=== PATIENT | female | born 1965 | race Caucasian/White ===

== ENCOUNTER 2017-03-09 16:39 | Emergency (ER) | payer MEDICARE, MEDICAID ==
[~2017-03-09] VITALS: Ht 167.6 cm; Wt 140.6 kg
[~2017-03-09 16:39] MED LIST: ALBU0.632 IH; ALBU17AE23 IH; ALPR1T PO; AMIT100T2 PO; AMOX500C2 PO; AMT10T PO; ARPZ10T PO; ASP81CT PO; ATEN50TA PO; ATN50T PO; BENZ100C18 PO; BENZ200C25 PO; BUDE0.5A2 IH; CEFD300C3 PO; CLON1TAB36; CODE118S2 PO; CPR500T PO; CRESTOR40 MG PO; CYMBALTA; DCS100C PO; DIAZ5TAB3 PO; DIAZ5TAB49; DIAZ5TAB49 PO; DICL100G31 TP; DLT180CCR; DOXY100C2 PO; DOXY100T2 PO; DULO60CA6 PO; ESCI10TA48 PO; ESTR1TAB24 PO; ESZO1TAB2 PO; FERR27TA PO; FLUT1DIS26 INH; FRS325T PO; GBPN100C PO; GBPN300C PO; GFCD10B PO; HYDR-34; HYDR-91 PO; IBP800T PO; IPRA3AMP19 IH; LAMO100T69 PO; LEVO250T7 PO; LEVO500T69 PO; LISI-556 PO; LISI5TAB PO; LUNESTA; LVT.1T PO; METH10TA8 PO; METH20TA34 PO; METH4TAB PO; MNTL10T PO; MULT-305 PO; NF-PILO5T PO; NIZA150C7 PO; NIZATIDINE; OMEP20CA12 PO; ONDA8TAB9 PO; OXYB15TA PO; OXYC10TA7 PO; OXYC20TA63 PO; OXYC30TA76 PO; PENI500T PO; PRCD5U PO; PRD50T PO; PRILO; PROM25SU10 PR; QTP100T; QTP25T; QUET300T PO; QUET400T PO; RAME8T PO; RANI300T4 PO; ROPI2TAB3 PO; ROPI2TAB4 PO; RPN.25T PO; RT-ALBUINH IH; SEROQUIL; SYNT; SYNTHROID; TOPI50TA20 PO; TPR25T PO; TRAM50TA2 PO; TRAZ150T42 PO; TRH2T PO; TRZ100T; TRZ100T PO; TRZ50T; VITA1CAP42 PO; VITA1TAB17 PO; VITAMIN D PO; [UNRECOGNIZED DRUG - OTHER]
--- NOTE | 2017-03-09 17:22 | ED General ---
General Stated Complaint: WEAKNESS,DIZINESS Source of Information: Patient Exam Limitations: No Limitations History of Present Illness Time Seen by Provider: 17:20 Initial Comments To ER with fatigue and general weakness since yesterday. She states that she has narcolepsy which is usually only a minor problem but seems to be worse since yesterday. She lists her medications which include amitriptyline, Requip , Seroquel, alprazolam, gabapentin, oxycodone. I advised all of these contribute to her narcolepsy. She does report a slight cough which is unusual for her though she does have a history of COPD and asthma. The cough is nonproductive. No fevers. Timing/Duration: 1-2 Days Severity: Moderate Allergies and Home Medications Allergies Coded Allergies: No Known Drug Allergies (Verified , 06/05/07) Uncoded Allergies: BEE STINGS (Allergy, Severe, 05/03/09) SMOKE (Allergy, Mild, 05/03/09) Home Medications Albuterol Sulfate 8.5 Gm Hfa.aer.ad, 2 PUFF IH Q6H PRN for SHORTNESS OF BREATH, (Reported) Amitriptyline HCl 100 Mg Tablet, 100 MG PO HS, (Reported) LAST FILLED 02/20/16 #30 Aspirin 81 Mg Tablet, 81 MG PO DAILY, (Reported) Atenolol 50 Mg Tablet, 50 MG PO DAILY, (Reported) Benzonatate 100 Mg Capsule, 100 MG PO TID PRN for COUGH, #15 Prescribed by: SHALOM LONDON on 03/09/171740 Cefuroxime Axetil 250 Mg Tablet, 250 MG PO BID, #14 Prescribed by: SHALOM LONDON on 03/09/171740 Diazepam 5 Mg Tablet, 5 MG PO Q8H, (Reported) Diclofenac Sodium 100 Gm Gel..gram., TP BID, (Reported) Ferrous Sulfate 27 Mg Tablet, 325 MG PO DAILY, (Reported) Lisinopril 5 Mg Tablet, 2.5 MG PO BID, (Reported) TAKES 1/2 OF A (5 MG) TABLET / LAST FILLED 02/24/16 #30 Methylphenidate HCl 20 Mg Tablet, 20 MG PO BID, (Reported) Multivits W-Ca,Fe,Other Min 1 Each Tablet, 1 TAB PO DAILY, (Reported) Oxycodone HCl 10 Mg Tablet, 20 MG PO Q12H PRN for PAIN, (Reported) TAKES 2 (10 MG) TABLETS Prednisone 20 Mg Tab, 40 MG PO DAILY, #6 Prescribed by: SHALOM LONDON on 03/09/17 174 Ropinirole HCl 2 Mg Tablet, 2 MG PO HS, (Reported) Tramadol HCl 50 Mg Tablet, 50 MG PO EVERY 6-8 HOURS PRN for BREAKTHROUGH PAIN, ( Reported) Vitamin B Complex 1 Each Tablet, 1 TAB PO DAILY, (Reported) [[Vitamin D]] , 1 TAB PO DAILY, (Reported) Constitutional: see HPI, No chills, No fever Respiratory: see HPI, cough, dyspnea on exertion Cardiovascular: no symptoms reported, No chest pain, No edema, No Hx of Intervention, No palpitations, No syncope, No vascular heart diseas Genitourinary: no symptoms reported Musculoskeletal: no symptoms reported Skin: no symptoms reported Psychiatric/Neurological: No Symptoms Reported Hematologic/Lymphatic: No Symptoms Reported Past Jeiipub-Ogykgm-Hqhpjv Hx Patient Social History Recent Foreign Travel: No Contact w/Someone Who Travel: No Recent Hopitalizations: No Immunizations Up To Date Date of Pneumonia Vaccine: May 16, 2011 Date of Influenza Vaccine: Jan 27, 2013 Seasonal Allergies Seasonal Allergies: No Respiratory Respiratory Disorders: Asthma, Pneumonia, Chronic Bronchitis, Sleep Apnea Currently Using CPAP: No Currently Using BIPAP: No Neurological Neurological Disorders: Concussion, Traumatic Brain Injury Reproductive System Hx Reproductive Disorders: Yes Sexually Transmitted Disease: No HIV/AIDS: No Female Reproductive Disorders: Denies Musculoskeletal Musculoskeletal Disorders: Arthritis Endocrine Endocrine Disorders: Hypothyroidsim, Diabetes, Non-Insulin dep HEENT Loss of Vision: Denies Hearing Impairment: Denies Psychosocial Behavioral Health Disorders: Anxiety, Bipolar, Depression Blood Transfusions Adverse Reaction to a Blood Tr: No Physical Exam Vital Signs Vital Sign - Last 12Hours 03/09/17 16:39 Temp 98.9 Pulse 117 Resp 20 B/P (MAP) 144/84 Pulse Ox 88 O2 Delivery Room Air Capillary Refill : General Appearance: No Apparent Distress, WD/WN Eyes: Bilateral Eye Normal Inspection, Bilateral Eye PERRL, Bilateral Eye EOMI HEENT: PERRL/EOMI, TMs Normal Neck: Full Range of Motion, Normal Inspection Respiratory: No Accessory Muscle Use, No Respiratory Distress Cardiovascular: Regular Rate, Rhythm, Normal Peripheral Pulses Gastrointestinal: Normal Bowel Sounds, Non Tender, Soft Extremity: Normal Capillary Refill, Non Tender, No Calf Tenderness Neurologic/Psychiatric: Alert, Oriented x3, No Motor/Sensory Deficits, Other ( speech is slow. Pupils are pinpoint. She is ambulatory and is able to carry on a coherent conversation however.) Skin: Normal Color, Warm/Dry Progress/Results/Core Measures Results/Orders Lab Results Laboratory Tests Test 03/09/17 16:55 03/09/17 17:00 Range/Units White Blood Count 10.7 4.3-11.0 10^3/uL Red Blood Count 4.01 L 4.35-5.85 10^6/uL Hemoglobin 11.9 11.5-16.0 G/DL Hematocrit 38 35-52 % Mean Corpuscular Volume 94 80-99 FL Mean Corpuscular Hemoglobin 30 25-34 PG Mean Corpuscular Hemoglobin Concent 32 32-36 G/DL Red Cell Distribution Width 14.1 10.0-14.5 % Platelet Count 237 130-400 10^3/uL Mean Platelet Volume 12.0 H 7.4-10.4 FL Neutrophils (%) (Auto) 53 42-75 % Lymphocytes (%) (Auto) 38 12-44 % Monocytes (%) (Auto) 6 0-12 % Eosinophils (%) (Auto) 4 0-10 % Basophils (%) (Auto) 0 0-10 % Neutrophils # (Auto) 5.6 1.8-7.8 X 10^3 Lymphocytes # (Auto) 4.0 1.0-4.0 X 10^3 Monocytes # (Auto) 0.6 0.0-1.0 X 10^3 Eosinophils # (Auto) 0.4 H 0.0-0.3 10^3/uL Basophils # (Auto) 0.0 0.0-0.1 10^3/uL Sodium Level 136 135-145 MMOL/L Potassium Level 3.7 3.6-5.0 MMOL/L Chloride Level 100 98-107 MMOL/L Carbon Dioxide Level 22 21-32 MMOL/L Anion Gap 14 5-14 MMOL/L Blood Urea Nitrogen 11 7-18 MG/DL Creatinine 1.06 0.60-1.30 MG/DL Estimat Glomerular Filtration Rate 55 BUN/Creatinine Ratio 10 Glucose Level 112 H 70-105 MG/DL Calcium Level 9.2 8.5-10.1 MG/DL Total Bilirubin 0.3 0.1-1.0 MG/DL Aspartate Amino Transf (AST/SGOT) 44 H 5-34 U/L Alanine Aminotransferase (ALT/SGPT) 33 0-55 U/L Alkaline Phosphatase 120 40-136 U/L Total Protein 7.6 6.4-8.2 GM/DL Albumin 3.8 3.2-4.5 GM/DL My Orders Orders - SHALOM LONDON APRN Cbc With Automated Diff (03/09/17 17:18) Comprehensive Metabolic Panel (03/09/17 17:18) Ua Culture If Indicated (03/09/17 17:18) Drug Screen Stat (Urine) (03/09/17 17:18) Arterial Blood Gas (03/09/17 17:18) Saline Lock/Iv-Start (03/09/17 17:18) Chest Pa/Lat (2 View) (03/09/17 17:18) Ekg Tracing (03/09/17 17:18) BNP (03/09/17 17:18) Troponin I (03/09/17 17:18) Vital Signs/I&O Vital Sign - Last 12Hours 03/09/17 16:39 Temp 98.9 Pulse 117 Resp 20 B/P (MAP) 144/84 Pulse Ox 88 O2 Delivery Room Air Diagnostic Imaging Diagonstic Imaging: Xray Plain Films/CT/US/NM/MRI: chest Comments NAME: [facility]ESS[facility]IM [facility] REC#: [id number] PT STATUS: REG ER : 1965 PHYSICIAN: SHALOM LONDON APRN ADMIT DATE: 03/09/17/ER Draft Date of Exam:03/09/17 CHEST PA/LAT (2 VIEW) INDICATION: Cough, shortness of air. EXAMINATION: Chest, two views, 03/09/2017. COMPARISONS: 12/31/2012. FINDINGS: The heart is normal in appearance. Pulmonary vasculature, however, appears congested, and there are mildly increased interstitial markings throughout the lungs. No effusions. No pneumothorax. IMPRESSION: 1. Mild pulmonary vascular congestion with early edema not excluded. Dictated on workstation # [id number] Dict: 03/09/17 1742 Trans: 03/09/17 1754 [id number] Interpreted by: JERMAIN SMITH MD Electronically signed by: Departure Impression Impression: Primary Impression: Sedated due to multiple medications Additional Impression: Acute bronchitis Disposition: 01 HOME, SELF-CARE Condition: Stable Departure-Patient Inst. Decision time for Depature: 17:40 Referrals: HIGINIO FIELDS MD (PCP/Family) Primary Care Physician Patient Instructions: Acute Bronchitis in Adults Add. Discharge Instructions: 1. Antibiotics as directed 2. REturn tO ER for any concerns Scripts Prednisone (Prednisone) 20 Mg Tab 40 MG PO DAILY, #6 TAB Prov: SHALOM LONDON APRN 03/09/17 Cefuroxime Axetil (Cefuroxime) 250 Mg Tablet 250 MG PO BID, #14 TAB Prov: SHALOM LONDON APRN 03/09/17 Benzonatate (Tessalon Perle) 100 Mg Capsule 100 MG PO TID Y for COUGH, #15 CAP Prov: SHALOM LONDON APRN 03/09/17 SHLAOM LONDON APRN Mar 09, 2017 17:22
[2017-03-09 17:26] LABS: BASOPHILS % (AUTO) 0 % (0-10); EOSINOPHILS # (AUTO) 0.4 10^3/uL (0.0-0.3); EOSINOPHILS % (AUTO) 4 % (0-10); LYMPHOCYTES % (AUTO) 38 % (12-44); MEAN CORPUSCULAR HEMOGLOBIN 30 PG (25-34); MEAN CORPUSCULAR HGB CONC 32 G/DL (32-36); MEAN CORPUSCULAR VOLUME 94 FL (80-99); MONOCYTES # (AUTO) 0.6 X 10^3 (0.0-1.0); MONOCYTES % (AUTO) 6 % (0-12); NEUTROPHILS # (AUTO) 5.6 X 10^3 (1.8-7.8); NEUTROPHILS % (AUTO) 53 % (42-75); PLATELET COUNT 237 10^3/uL (130-400); RED BLOOD COUNT 4.01 10^6/uL (4.35-5.85); RED CELL DISTRIBUTION WIDTH 14.1 % (10.0-14.5); WHITE BLOOD COUNT 10.7 10^3/uL (4.3-11.0)
[2017-03-09 17:39] LABS: BILIRUBIN,URINE NEGATIVE (NEGATIVE); KETONES,URINE NEGATIVE (NEGATIVE); LEUKOCYTE ESTERASE ,URINE 1+ (NEGATIVE); NITRITE,URINE NEGATIVE (NEGATIVE); PH,URINE 6 (5-9); PROTEIN,URINE NEGATIVE (NEGATIVE); UROBILINOGEN,URINE NORMAL (NORMAL)
[2017-03-09] MEDS ORDERED: CEFU250T80 PO (17:41)
[2017-03-09] MEDS ORDERED: BENZ-13 PO (17:41)
[2017-03-09] MEDS ORDERED: PRD20T PO (17:41)
[2017-03-09 17:47] LABS: ALANINE AMINOTRANSFERASE 33 U/L (0-55); ALBUMIN 3.8 GM/DL (3.2-4.5); ANION GAP 14 MMOL/L (5-14); ASPARTATE AMINO TRANSFERASE 44 U/L (5-34); BILIRUBIN,TOTAL 0.3 MG/DL (0.1-1.0); BLOOD UREA NITROGEN 11 MG/DL (7-18); BUN/CREATININE RATIO 10; CALCIUM 9.2 MG/DL (8.5-10.1); CARBON DIOXIDE 22 MMOL/L (21-32); CHLORIDE 100 MMOL/L (98-107); CREATININE SERUM 1.06 MG/DL (0.60-1.30); GFR ESTIMATED 55; GLUCOSE 112 MG/DL (70-105); POTASSIUM 3.7 MMOL/L (3.6-5.0); SODIUM 136 MMOL/L (135-145); TOTAL PROTEIN 7.6 GM/DL (6.4-8.2)
[2017-03-09 17:53] LABS: TROPONIN I < 0.30 NG/ML (<0.30)
--- NOTE | 2017-03-09 17:54 | Diagnostic Imaging Report ---
INDICATION: Cough, shortness of air. EXAMINATION: Chest, two views, 03/09/2017. COMPARISONS: 12/31/2012. FINDINGS: The heart is normal in appearance. Pulmonary vasculature, however, appears congested, and there are mildly increased interstitial markings throughout the lungs. No effusions. No pneumothorax. IMPRESSION: 1. Mild pulmonary vascular congestion with early edema not excluded. Dictated by: Dictated on workstation # [id number]
[2017-03-09 18:10] LABS: ABG BASE EXCESS -0.1 MMOL/L (-2.5-2.5); ABG HCO3 25 MMOL/L (23-27); ABG OXYGEN SATURATION 98 % (94-100); ABG PCO2 46 MMHG (35-45); ABG PH 7.35 (7.37-7.43); ABG PO2 84 MMHG (79-93); ABG TCO2 26.3 MMOL/L (21.0-31.0); ALLENS TEST YES-POS; PATIENT TEMP 98.2
[2017-03-09 18:13] VITALS: BP 144/84
== END 2017-03-09 18:13 | disposition home or self-care (01) ==
LOC: EDUNIT# 16:39 → ER 16:43
DX: R41.89 Other symptoms and signs involving cognitive functions and awareness (principal); J20.9 Acute bronchitis, unspecified; J44.9 Chronic obstructive pulmonary disease, unspecified; G47.30 Sleep apnea, unspecified; F41.9 Anxiety disorder, unspecified; F31.9 Bipolar disorder, unspecified; E11.9 Type 2 diabetes mellitus without complications; E03.9 Hypothyroidism, unspecified; Z87.820 Personal history of traumatic brain injury; Z79.82 Long term (current) use of aspirin; Z87.01 Personal history of pneumonia (recurrent)
CPT/HCPCS: 36415; 71020; 80053; 80306; 81000; 82805; 83880; 84484; 85025; 87088; 93005

== ENCOUNTER → 2018-05-08 | Outpatient (CLI) | payer MEDICARE, MEDICAID ==
[~2018-05-08] MED LIST changes: +CEFU250T80 PO; +PRD20T PO
== END ==
LOC: LAB 10:15
PROVIDERS: ATTEND Family Medicine
DX: F98.8 Other specified behavioral and emotional disorders with onset usually occurring in childhood and adolescence (principal); Z86.718 Personal history of other venous thrombosis and embolism
CPT/HCPCS: 36415; 82607; 82746